=== PATIENT | male | born 2000 | race Two or more races ===

== ENCOUNTER 2024-06-11 16:52 | Emergency (ER) | payer MEDICAID ==
[~2024-06-11] VITALS: Ht 177.8 cm; Wt 65.3 kg
--- NOTE | 2024-06-11 17:07 | ED.PDOC ---
HPI (NEURO) HPI Comments 24-year-old male presents with a chief complaint of s/p seizure activity x 1450 this afternoon. Patient had an unwitnessed seizure, only found after hitting the floor by his grandmother. Patients grandmother reports that seizure lasted approximately 5 minutes long. Patient last had a seizure x 2 weeks ago. Patient saw his neurologist who increased his Keppra dosage from 500mg to 750mg and after his last seizure, to now 1000mg. Patient reports that he takes his medication as prescribed. Patient has an abrasion to his left cheek. No other symptoms or modifying factors present at this time. Time Seen by MD: 16:57 Reviewed Notes: Medications, Allergies Information Source: Patient, Relative (Mother) Mode of Arrival: Ambulatory Severity: Moderate Headache Severity: None Timing: Hours Duration: Intermittent Prehospital treatment: None Seizure Quality: Single Episodes Seizure Location: Generalized Onset: Other (UNWITNESSED) Circumstances: Spontaneous Past Medical History PAST MEDICAL HISTORY: Seizures Surgical History: Denies all surgeries Family History Family History: Reviewed,noncontributory to illness Social History Smoker: Non-Smoker Alcohol: Denies ETOH Use Drugs: Denies Drug Use Lives In: Home Constitutional: denies: chills, diaphoresis, fatigue, fever, malaise, sweats, weakness, others EENTM: denies: blurred vision, double vision, ear bleeding, ear discharge, ear drainage, ear pain, ear ringing, eye pain, eye redness, hearing loss, mouth pain, mouth swelling, nasal discharge, nose bleeding, nose congestion, nose pain, photophobia, tearing, throat pain, throat swelling, voice changes, others Respiratory: denies: cough, hemoptysis, orthopnea, SOB at rest, shortness of breath, SOB with excertion, stridor, wheezing, others Cardiovascular: denies: chest pain, dizzy spells, diaphoresis, Dyspnea on exertion, edema, irregular heart beat, left arm pain, lightheadedness, palpitations, PND, syncope, others Gastrointestinal: denies: abdomen distended, abdominal pain, blood streaked bowels, constipated, diarrhea, dysphagia, difficulty swallowing, hematemesis, melena, nausea, poor appetite, poor fluid intake, rectal bleeding, rectal pain, vomiting, others Genitourinary: denies: burning, dysuria, flank pain, frequency, hematuria, incontinence, penile discharge, penile sore, pain, testicle pain, testicle swelling, urgency, others Neurological: reports: seizure; denies: dizziness, fainting, headache, left sided numbness, left sided weakness, numbness, paresthesia, pre-existing deficit, right sided numbness, right sided weakness, speech problems, tingling, tremors, weakness, others Musculoskeletal: denies: back pain, gout, joint pain, joint swelling, muscle pain, muscle stiffness, neck pain, others Integumetry: denies: bruises, change in color, change in hair/nails, dryness, laceration, lesions, lumps, rash, wounds, others Allergic/Immunocompromised: denies: Difficulty Healing, Frequent Infections, Hives, Itching, others Hematologic/Lymphatic: denies: anemia, blood clots, easy bleeding, easy bruising, swollen glands, others Endocrine: denies: excessive hunger, excessive sweating, excessive thirst, excessive urination, flushing, intolerance to cold, intolerance to heat, unexplained weight gain, unexplained weight loss, others Psychiatric: denies: anxiety, bipolar disorder, depression, hopeless, panic disorder, schizophrenia, sleepless, suicidal, others All Other Systems: Reviewed and Negative Physical Exam General Appearance: No Apparent Distress, Thin, Other (LEFT CHEEK ABRASION) HEENT: Normal ENT Inspection, Pharynx Normal, TMs Normal Neck: Full Range of Motion, Non-Tender, Normal, Normal Inspection Respiratory: Chest Non-Tender, Lungs Clear, No Accessory Muscle Use, No Respiratory Distress, Normal Breath Sounds Cardiovascular: No Edema, No JVD, No Murmur, No Gallop, Normal Peripheral Pulses, Regular Rate/Rhythm Breast Exam: Deferred Gastrointestinal: No Organomegaly, Non Tender, No Pulsatile Mass, Normal Bowel Sounds, Soft Genitalia: Deferred Pelvic: Deferred Rectal: Deferred Extremities: No calf tenderness, Normal capillary refill, Normal inspection, Normal range of motion, Non-tender, No pedal edema Musculoskeletal : Apperance: Normal 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 Was a procedure done?: No Differential Diagnosis (SZ) Seizure: Hyperventilation, Psychogenic Seizure, Anticonvulsant Withdrawl, C losed Head Injury, CVA/TIA, Hypocalcemia, Hypoglycemia, Hyponatremia, Hypoxemia, Idiopathic, Mass Lesion, Epilepsy-Break Through, Epilepsy-Status X-Ray, Labs, Meds, VS Vital Signs Date Time Temp Pulse Resp B/P (MAP) Pulse Ox O2 Delivery O2 Flow Rate FiO2 06/11/24 17:05 97.8 92 20 139/72 (94) 9 Lab Test 06/11/24 17:14 06/11/24 17:00 Range/Units Sodium Level Pending Potassium Level Pending Chloride Level Pending Carbon Dioxide Level Pending Anion Gap Pending Blood Urea Nitrogen Pending Creatinine Pending Glomerular Filtration Rate Calc Pending BUN/Creatinine Ratio Pending Serum Glucose Pending Calcium Level Pending Total Bilirubin Pending Aspartate Amino Transferase (AST) Pending Alanine Aminotransferase (ALT) Pending Alkaline Phosphatase Pending Total Protein Pending Albumin Pending POC Glucose 94 70-106 mg/dl Current Medications Medications (Trade) Dose Ordered Sig/Tiffany Route Start Time Stop Time Status Last Admin Levetiracetam (Keppra Tablet) 500 mg ONCE ONCE PO 06/11/24 17:15 06/11/24 17:16 DC 06/11/24 17:09 Time of 1ST Reevaluation: 17:27 Reevaluation 1ST: Resolved Time of 2ND Reevaluation: 17:47 Reevaluation 2ND: Resolved Patient Education/Counseling: Diagnosis, Treatment, Prognosis, Need For Follow Up Family Education/Counseling: Diagnosis, Treatment, Prognosis, Need For Follow Up Comments The following tests were ordered, and results were reviewed by me: BMP, Keppra Dose Additional Information was gathered from interviewing the following independent historians: Mother I discussed treatment and results with medical personnel and: Family Additional Information pt is compliant to his medications but still has frequent breakthrough seizures. his neurologist is titrating up the keppra. a head ct was done by his neurologist and it was normal. despite of this, he continues to have frequent breakthrough seizures. he is alert and asymptomatic here. i have ordered an extra 500mg of keppra. he is stable to follow up with his neurologist. his chemistry is unremarkable Departure 1 Departure Time of Disposition: 17:47 Impression: Primary Impression: Breakthrough seizure Disposition: 01 HOME / SELF CARE / HOMELESS Condition: Good Discharged With: Relative (Mother) Critical Care Note Critical Care Time?: No Stability Stability form required: No I personally scribed for FRIEDA HUSSEIN MD ([email or web address]) on 06/11/24 at 17:07. Electronically submitted by Milton Quan ([email or web address]). FRIEDA HUSSEIN MD Jun 11, 2024 17:07
[2024-06-11] MEDS: levETIRAcetam 500 MG TAB PO ONE (17:09)
[2024-06-11 17:39] LABS: Alanine Aminotransferase 20 U/L (7-40); Alkaline Phosphatase 76 U/L (46-116); Anion Gap 7 (5-15); Aspartate Aminotransferase 25 U/L (13-40); BUN/Creatinine Ratio 11.3 (10.0-20.0); Bilirubin, Total 1.1 mg/dL (0.2-1.0); Blood Urea Nitrogen 13 mg/dL (9-23); Carbon Dioxide 26 mmol/L (20-31); Chloride 106 mmol/L (98-107); Glucose 92 mg/dL (74-106); Potassium 4.3 mmol/L (3.5-5.1); Sodium 139 mmol/L (136-145)
[2024-06-11 18:28] LABS: Calcium 10.6 mg/dL (8.7-10.4); Total Protein 8.2 g/dL (5.7-8.2)
[2024-06-11 18:42] LABS: Albumin 5.2 g/dL (3.2-4.8)
[2024-06-11 19:29] VITALS: BP 106/69; PULSE 81; RESP 18; TEMP 98.5; O2SAT 96
== END 2024-06-11 19:29 | disposition home or self-care (01) ==
LOC: ER 16:52
DX: S00.81XA Abrasion of other part of head, initial encounter (principal); R56.9 Unspecified convulsions; W18.39XA Other fall on same level, initial encounter; Y93.89 Activity, other specified; Y92.89 Other specified places as the place of occurrence of the external cause; Y99.8 Other external cause status
CPT/HCPCS: 36415; 80053; 82962